=== PATIENT | female | born 1990 | race Caucasian/White ===

== ENCOUNTER 2020-11-04 03:46 | Emergency (ER) | payer SELFPAY ==
[2020-11-04 03:47] VITALS: BP 113/87; PULSE 78; RESP 15; TEMP 36.2; O2SAT 100; BMI 27.9
--- NOTE | 2020-11-04 03:56 | CT_ITS ---
STUDY: CT ABDOMEN AND PELVIS WITHOUT CONTRAST REASON FOR EXAM: Female, 30 years old. Left flank pain. RADIATION DOSAGE (If Supplied By Facility): CTDIvol = ( 7.60 ) mGy, DLP = ( 383.33 ) mGycm TECHNIQUE: Transaxial images were obtained from the dome of the diaphragm to the symphysis pubis without oral contrast, and without intravenous contrast. Sagittal and coronal images were reconstructed. Individualized dose optimization techniques were used for this CT. COMPARISON: None. FINDINGS: The visualized lung bases are unremarkable. The visualized portions of the heart are within normal limits. Normal liver. Small low-attenuation stones are present in the gallbladder. Normal spleen. Normal pancreas. Normal bilateral adrenal glands. Normal right kidney. Mild left hydronephrosis. It is difficult to follow the left ureter through the pelvis without intravenous contrast. There is a 1 mm 1 x 1 mm calcification in the region of the left ureterovesicular junction which may cause the obstruction. The seen on axial image 149. Normal visualized stomach. Normal small intestine. Normal colon. There is non-visualization of the appendix. Normal abdominal aorta. Normal inferior vena cava. Normal retroperitoneum. Normal urinary bladder. The urinary bladder is distended with fluid and measures 14 cm in craniocaudad dimension. Bladder extends into the lower abdomen. There may be 2 endometrial canals in the uterus and correlation with ultrasound and later with MRI if required is recommended. No adnexal mass is seen. Normal abdominal wall. Normal osseous structures. CT/Abdomen/Pelvis without Cont IMPRESSION: Mild left hydronephrosis which may secondary to a 1 mm x 1 mm calcification in the region of the left ureterovesicular junction. Cholelithiasis. Distended urinary bladder. Possible uterine anomaly. Correlate with transvaginal ultrasound. Electronically Signed: Kaleb Rodriguez MD at 5:56 EDT , Service support ,
--- NOTE | 2020-11-04 03:58 | ED.VISSUMM ---
- ER Visit Summary Date of Service: 11/04/20 Chief Complaint: Left flank pain History of Present Illness: The patient is a 30 F no sniffing past medical history. Past surgical history of a complete hysterectomy and tonsillectomy. Patient states for 3 days she has had left flank pain. Sudden onset. Worse with movement. She denies any prior history of similar pain. She denies any nausea, vomiting or diarrhea. She denies any dysuria or hematuria. No stone history. No history of any type of back surgery or recent trauma. States she tried to drink this away. She had 5 alcoholic beverages today. She denies any fever or chills. Physical Examination: Younger female pale left flank pain. Vital signs are stable afebrile. She does not look septic or toxic. She is lying on her side with her face lying towards the bed. She does not look septic or toxic. H EENT exam unremarkable. Moist with members. Neck nontender. Lungs clear to auscultation bilaterally. Heart regular rhythm rate about 80 no murmur. Chest were nontender. Abdomen soft nontender normal bowel sounds no peritoneal signs. No signs of trauma. There is absolutely no reproducible abdominal tenderness. No signs of obstruction. No distention. No organomegaly or masses. Back nontender except she does have left CVA tenderness primarily over the paralumbar musculature. There is no ecchymosis or bruising. There is no signs of trauma. There is no spine or right CVA tenderness. She is moving all 4 extremities. They are nontender. No edema. Neurovascularly intact. Neurologically she is awake and alert. Answering questions and following commands. No focal motor deficits. Test Results: CBC shows a white count 1.6 hemoglobin 14 no bands chemistries unremarkable normal creatinine and gap. UA normal no signs of infection nor any blood. Alcohol level was also obtained which was 260 consistent with alcohol intoxication. CT flank study done without any contrast shows a left 1 mm UVJ stone with hydronephrosis. There is also incidental finding of cholelithiasis which is not the cause of patient's pain. This is read by the radiologist and reviewed by me. Repeat exam after IV Toradol, morphine and Zofran patient is feeling improved. Her father is at bedside. She will be discharged home with instructions on how to treat the pain for kidney stone. Emergency Department Course and Treatment: 30-year-old female with acute left flank pain for 3 days or so. We treated IV Toradol. CT scan and labs are being obtained. She has no prior significant history or prior episode of similar pain. Treatment Plan: Motrin and limited [place] for pain. No driving want any pain medication and also while she is intoxicated. Strain your urine for the stone. Plenty of fluids. Follow-up with a local urologist as needed. Disposition: Discharge Impression: Acute left flank pain secondary to left UVJ 1 mm ureteral calculi with hydronephrosis Incidental finding of cholelithiasis Acute alcohol intoxication This note was generated with [employer] dictation software. It may contain incorrect words, spelling, and punctuation that were not noted in review of the chart prior to signing
[2020-11-04] MEDS: Ketorolac 30 MG/ML Syringe IV (04:11)
[2020-11-04] MEDS: 0.9% Normal Saline 1,000 ML 1000 ML IV (04:12)
[2020-11-04 04:23] LABS: Absolute Lymphocyte Count 5.11 X10^3/uL (0.83-4.51); Absolute Neutrophil Count 5.2 X10^3/uL (2.0-7.7); Basophil% 0.9 % (0-1); Eosinophil# 0.37 X10^3/uL; Eosinophils% 3.2 % (0-5); Hematocrit 41.3 % (37-47); Lymphocyte # 5.11 X10^3/ul (0.83-4.51); Mean Corp Hgb Conc 33.9 g/dL (32-36); Mean Corpuscular Hgb 34.6 pg (27.0-32.0); Mean Platelet Vol. 11.1 fl (6.2-12.0); Monocyte# 0.78 X10^3/uL; Monocyte% 6.7 % (0-10); NRBC Flagged by Analyzer 0 % (0-5); Neutrophil # 5.22 X10^3/uL (2.7-7.7); Neutrophil % 44.9 % (47-70); POSITIVE DIFFERENTIAL YES; Platelet Count 301 K/mm3 (150-450); RBC Distribution Width SD 45.7 fl (35.1-43.9); Red Blood Count 4.05 M/mm3 (4.2-5.4); White Blood Count 11.6 K/mm3 (4.4-11.0)
[2020-11-04 04:27] LABS: Differential Indicated SCAN CRITERIA MET
[2020-11-04 04:35] LABS: Anion Gap 7 (5-15); BUN 6 mg/dL (7-18); BUN/Creat Ratio 9.2 RATIO (10-20); Calcium,Total 8.4 mg/dL (8.5-10.1); Chloride 99 mmol/L (98-107); Creatinine, Serum 0.65 mg/dL (0.55-1.02); EST Glomerular Filtration Rate 112 mL/min (>60); Est Glom Filt Rate - Afr Amer 135 mL/min (>60); Estimated Creatinine Clearance 112.84 ml/min; Glucose 80 mg/dL (74-106); Potassium 4.5 mmol/L (3.5-5.1); Sodium Level 134 mmol/L (136-145)
[2020-11-04] MEDS: morphine 8 MG/ML Syringe 6 MG IV (05:22)
[2020-11-04] MEDS: Ondansetron 4 MG/2 ML Vial IV (05:30)
[2020-11-04 05:31] LABS: Bacteria 0 SEEN /hpf (None Seen); Color, Urine Yellow (Yellow); Glucose, Dipstick Normal (Normal); Ketone-Dipstick Negative (Negative); Leukocyte Esterase-Dipstick Negative /ul (Negative); Mucous, Urine 0 SEEN /hpf (<or=2+); Nitrite-Dipstick Negative (Negative); Occult Blood-Urine Negative /ul (Negative); Protein-Dipstick Negative (Negative); Red Blood Cells-Urine 0 SEEN /hpf (0-5); Urine Bilirubin Dipstick Negative (Negative); Urine Clarity Clear (Clear); Urine Urobilinogen Normal (Normal); Urine pH 6.5 (5.0 - 8.0); White Blood Cells 0 SEEN /hpf (0-5)
[2020-11-04 05:36] LABS: Squamous Epithelial Cells - UA 0-5 SEEN /hpf (5-10)
[2020-11-04 06:10] VITALS: BP 115/77; PULSE 68; RESP 15; O2SAT 100
--- NOTE | 2020-11-04 06:17 | ED.DEP ---
ED Disposition - Plan for ED Patient: Disposition: Home or Assisted Living Instructions: ED Kidney Stone w/ Colic Prescriptions: Hydrocodone Bitart/Apap 5-325 [[place] 5MG-325MG] 1 - 2 tablet PO Q4H PRN PRN 3 Days #10 tab PRN Reason: Pain Prescription Printed Referrals: Dat Quiroz MD [STAFF PHYSICIAN] - 3-5 Days if not improving Additional Instructions: You have a kidney stone in the left that is small is only 1 mm it should pass in your bladder soon once that occurs your pain will resolve. Strain your urine for the past stone. Motrin for pain. Limited [place] for pain. Plenty of fluids and rest. No driving today due to extreme you with pain medications plus your alcohol level. No further alcohol today. You also have gallstones which were seen on the CAT scan today that is an incidental finding that is not what is causing your pain today. The pain today is caused by the left kidney stone.
[2020-11-04 06:39] VITALS: BP 115/77; PULSE 68; RESP 15; O2SAT 100
== END 2020-11-04 06:40 | disposition home or self-care (01) ==
PROVIDERS: Emergency Provider Emergency Medicine
DX: N13.2 Hydronephrosis with renal and ureteral calculous obstruction (principal); K80.20 Calculus of gallbladder without cholecystitis without obstruction; F10.129 Alcohol abuse with intoxication, unspecified; Y90.8 Blood alcohol level of 240 mg/100 ml or more
CPT/HCPCS: 74176; 80048; 81001; 82077; 85025; 96361; 96374; 96375; 99285; A4216; J2405